=== PATIENT | male | born 1985 | race Caucasian/White ===

== ENCOUNTER 2019-05-11 21:30 | Observation (INO) | payer BC ==
[~2019-05-11] VITALS: Ht 172.7 cm; Wt 68.1 kg
[~2019-05-11 21:30] MED LIST: CEPH500 PO; CYCL10 PO; HYDACE5 PO; IBUP800 PO; NAPR500 PO; RXCYCL10 PO; RXHYDACE PO; SULTRIDS PO
[2019-05-11 21:58] LABS: BASOPHILS ABSOLUTE AUTO 0.13 K/mm3 (0.00-0.23); BASOPHILS PERCENT AUTO 1 % (0-2); EOSINOPHILS ABSOLUTE AUTO 0.13 K/mm3 (0.00-0.68); EOSINOPHILS PERCENT AUTO 1 % (0-6); Hemoglobin 19.2 g/dL (13.5-17.5); IMMATURE GRAN ABSOLUTE AUTO 0.03 K/mm3 (0.00-0.10); IMMATURE GRAN PERCENT AUTO 0 % (0-1); LYMPHOCYTES ABSOLUTE AUTO 2.36 K/mm3 (0.84-5.20); LYMPHOCYTES PERCENT AUTO 26 % (21-46); MONOCYTES ABSOLUTE AUTO 0.69 K/mm3 (0.16-1.47); MONOCYTES PERCENT AUTO 8 % (4-13); Mean Corpuscular HGB 31.4 pg (26.0-34.0); Mean Corpuscular Volume 92 fL (80-100); Mean Platelet Volume 10.9 fL (9.1-12.4); NEUTROPHILS PERCENT AUTO 64 % (41-73); Platelet Count 279 K/mm3 (150-400); RDW Coefficient Variation 12.4 % (11.7-14.2); RDW Standard Deviation 42.5 fL (35.1-46.3); Red Blood Cell Count 6.11 M/mm3 (4.30-5.90); White Blood Cell Count 9.14 K/mm3 (4.00-11.30)
[2019-05-11 22:00] LABS: Hematocrit 56.4 % (37.0-53.0)
[2019-05-11 22:35] LABS: Alanine Aminotransfer (ALT/SGP 1197 U/L (12-78); Albumin, Blood 4.3 g/dL (3.4-5.0); Albumin/Globulin Ratio 1.2 (0.8-1.8); Alk Phos 106 U/L (50-136); Anion Gap 15 mmol/L (6-16); Aspartate Aminotrans (AST/SGOT 1323 U/L (12-37); Blood Urea Nitrogen 20 mg/dL (8-24); Bun/Creatinine Ratio 22.9 (12.0-20.0); CO2, Blood 17 mmol/L (21-32); Calcium, Blood 8.6 mg/dL (8.5-10.1); Chloride, Blood 107 mmol/L (98-108); Creatinine, Blood 0.87 mg/dL (0.60-1.20); Globulin, Blood 3.7 g/dL (2.2-4.0); Glomerular Filtration Rate >60 (60-); Glucose, Blood 89 mg/dL (70-99); Potassium, Blood 4.1 mmol/L (3.5-5.5); Sodium, Blood 139 mmol/L (136-145)
[2019-05-11] MEDS ORDERED: BENADRYL25 MG PO (23:34)
[2019-05-12 01:15] LABS: Source, Urine Clean Catch
[2019-05-12 01:26] LABS: Bilirubin, Urine Neg (Neg); Blood, Urine Neg (Neg); Glucose Qualitative, Urine Neg (Neg); Ketones, Urine 2+ (Neg); Leukocyte Esterase, Urine Neg (Neg); Nitrite, Urine Neg (Neg); Protein, Urine Neg (Neg); Urobilinogen, Urine NORM (Normal)
[2019-05-12 01:34] LABS: Appearance, Urine Clear (Clear); Color, Urine Yellow (P-Yellow)
[2019-05-12 05:36] LABS: Hematocrit 45.7 % (37.0-53.0); Hemoglobin 15.6 g/dL (13.5-17.5); Mean Corpuscular HGB 31.7 pg (26.0-34.0); Mean Corpuscular HGB Conc 34.1 g/dL (31.5-36.5); Mean Corpuscular Volume 93 fL (80-100); Mean Platelet Volume 10.8 fL (9.1-12.4); Platelet Count 224 K/mm3 (150-400); RDW Coefficient Variation 12.3 % (11.7-14.2); RDW Standard Deviation 42.5 fL (35.1-46.3); Red Blood Cell Count 4.92 M/mm3 (4.30-5.90); White Blood Cell Count 7.47 K/mm3 (4.00-11.30)
[2019-05-12 06:01] LABS: Alanine Aminotransfer (ALT/SGP 806 U/L (12-78); Albumin, Blood 3.4 g/dL (3.4-5.0); Albumin/Globulin Ratio 1.2 (0.8-1.8); Alk Phos 83 U/L (50-136); Anion Gap 8 mmol/L (6-16); Aspartate Aminotrans (AST/SGOT 643 U/L (12-37); Bilirubin, Total 1.8 mg/dL (0.1-1.0); Blood Urea Nitrogen 17 mg/dL (8-24); Bun/Creatinine Ratio 18.4 (12.0-20.0); CO2, Blood 23 mmol/L (21-32); Calcium, Blood 7.7 mg/dL (8.5-10.1); Chloride, Blood 108 mmol/L (98-108); Creatinine, Blood 0.92 mg/dL (0.60-1.20); Globulin, Blood 2.8 g/dL (2.2-4.0); Glomerular Filtration Rate >60 (60-); Glucose, Blood 80 mg/dL (70-99); Magnesium, Blood 2.1 mg/dL (1.6-2.4); Potassium, Blood 3.9 mmol/L (3.5-5.5); Sodium, Blood 139 mmol/L (136-145); Total Protein, Blood 6.2 g/dL (6.4-8.2)
--- NOTE | 2019-05-12 06:23 | NUR ---
SHIFT SUMMARY NEW ED ADMIT THIS AM. PT ALERT AND ORIENTED. TRANSFERED EASILY FROM ED GURNEY TO BED WITHOUT ANY ISSUES. NO COMPLAINTS OF ABD PAIN OR DISCOMFORT. NO COMPLAINTS OF NAUSEA. PLEASANT AND COOPERATIVE. RASH TO ABD PT REPORTED WAS NOT NEW AND THAT HE GETS FROM THE HEAT. VITAL SIGNS STABLE. WILL CONTINUE TO MONITOR.
[2019-05-12 17:25] LABS: Campylobacter Sp Not Detected (NOT DETECT)
[2019-05-12 17:26] LABS: Adenovirus F 40/41 Not Detected (NOT DETECT); Astrovirus Not Detected (NOT DETECT); Cryptosporidium Not Detected (NOT DETECT); Cyclospora Cayetanensis Not Detected (NOT DETECT); E. Coli O157 Not Detected (NOT DETECT); Entamoeba Histolytica Not Detected (NOT DETECT); Enteroaggregative E. coli-EAEC Not Detected (NOT DETECT); Enteropathogenic E. coli-EPEC Detected (NOT DETECT); Enterotoxigenic E. coli-ETEC Not Detected (NOT DETECT); Giardia Lamblia Not Detected (NOT DETECT); Norovirus GI/GII Not Detected (NOT DETECT); Plesiomonas Shigelloides Not Detected (NOT DETECT); Rotavirus A Not Detected (NOT DETECT); Salmonella Sp Not Detected (NOT DETECT); Sapovirus Not Detected (NOT DETECT); Shiga Toxin-prod E. coli-STEC Not Detected (NOT DETECT); Shigella/Enteroin E. coli-EIEC Not Detected (NOT DETECT); Vibrio Cholerae Not Detected (NOT DETECT); Vibrio Sp Not Detected (NOT DETECT); Yersinia Enterocolitica Not Detected (NOT DETECT)
--- NOTE | 2019-05-12 19:20 | NUR ---
SHIFT SUMMARY: NO ACUTE CHANGES TO REPORT THIS SHIFT. PT A&O; CALM AND COOPERATIVE WITH CARE; INDEPENDENT IN ROOM. NO C/O PAIN OR NAUSEA THIS SHIFT. FLUID REHYDRATION CONTINUING. ABD US SCHEDULED FOR 05/13; NPO AFTER MIDNIGHT. REPORT GIVEN TO ONCOMING RN.
--- NOTE | 2019-05-13 01:52 | NUR ---
IV IN RT AC DOCUMENTED LT, CORRECTED SITE.
[2019-05-13 02:08] LABS: HBSAG SCREEN Negative (Negative); HEP A AB, IGM Negative (Negative); HEP B CORE AB, IGM Negative (Negative); HEP C VIRUS AB <0.1 (0.0-0.9)
--- NOTE | 2019-05-13 04:47 | NUR ---
34 year old Male who was admitted with N V D tested positive on stool GI panel for EColi. He recieved IV fluids and now is saline locked. He reports on 3 bowel movements since admit the last 2 were soft after recieving gen diet. Denies nausea all shift ir acute pain. now NPO for abd ultrasounfd and liver function panel. lungs sounds coarse ronchi throughout. PT has asthma and smokes 1 PPD tobacco. Encouraged smoking cessation. Travelled to [place] 6 months ago vauge co gi problems since.
[2019-05-13 05:36] LABS: Albumin, Blood 3.4 g/dL (3.4-5.0); Albumin/Globulin Ratio 1.1 (0.8-1.8); Bilirubin, Direct 0.5 mg/dL (0.0-0.3); Bilirubin, Indirect 1.6 mg/dL (0.1-0.7); Bilirubin, Total 2.1 mg/dL (0.1-1.0); Total Protein, Blood 6.4 g/dL (6.4-8.2)
[2019-05-13 05:38] LABS: Alanine Aminotransfer (ALT/SGP 487 U/L (12-78); Albumin, Blood 3.4 g/dL (3.4-5.0); Albumin/Globulin Ratio 1.2 (0.8-1.8); Alk Phos 80 U/L (50-136); Anion Gap 5 mmol/L (6-16); Aspartate Aminotrans (AST/SGOT 182 U/L (12-37); Bilirubin, Total 2.1 mg/dL (0.1-1.0); Blood Urea Nitrogen 10 mg/dL (8-24); Bun/Creatinine Ratio 12.8 (12.0-20.0); CO2, Blood 26 mmol/L (21-32); Calcium, Blood 8.1 mg/dL (8.5-10.1); Chloride, Blood 108 mmol/L (98-108); Creatinine, Blood 0.78 mg/dL (0.60-1.20); Globulin, Blood 2.9 g/dL (2.2-4.0); Glomerular Filtration Rate >60 (60-); Glucose, Blood 87 mg/dL (70-99); Potassium, Blood 4.1 mmol/L (3.5-5.5); Sodium, Blood 139 mmol/L (136-145); Total Protein, Blood 6.3 g/dL (6.4-8.2)
--- NOTE | 2019-05-13 10:04 | NUR ---
PT. LYING QUIETLY, EYES CLOSED. WENT OUT TO SMOKE AFTER THE ABD. US WAS CANCELLED AND ZOFRAN GIVEN FOR NAUSEA AT 0730.
--- NOTE | 2019-05-13 18:30 | NUR ---
PT.'S LABS HAVE IMPROVED SOMEWHAT TODAY, PT. HAD NAUSEA THIS AM BUT NOT THIS AFTERNOON. PT. WAITNG FOR THE SEND OUT LABS ON HEPATITIS BEFORE HE CAN BE DISCHARGED HOME. ORDERS HAVE BEEN WRITTEN IN CASE THEY COME IN THIS EVENING. DR. KRISTEL PALENCIA FOR SLEEP FOR PT. IF HE DOSN'T GET DISCHARGED THIS EVENING. PT. DOES NOT HAVE AN IV SITE WHICH IS NOT NEEDED AT THIS TIME. PT. HAS BEEN OUT TO SMOKE SEVERAL TIMES TODAY EVEN THOUGH HE WAS ADVISED AGAINST IT. NO FURTHER DIARRHEA NOTED.
--- NOTE | 2019-05-13 22:38 | NUR ---
DR Robles updated PT positive for MRSA in nares and no new orders. PT placed in contact isolation . discussed positive MRSA culture in nares to PT. has order for no IV needed and awaiting hepatitis panel prior to discharge. Zacheryien given at HS for insommnia. Tolerating gen diet.
--- NOTE | 2019-05-14 06:35 | NUR ---
PT compaining of headache and has nothing rx to treat pain , had denied pain previously and caffine offered as he usually consumes large amts of caffine. no relief, paged [facility] hospitalist to ask for rx to treat severe headache. Await return call. Positive for MRSA in nares continues in contact isolation. Positive for ECOLI in stool . no current diarrhea or nausea.
--- NOTE | 2019-05-14 06:41 | NUR ---
DR calls back with prn use of oxycodone 5 mg Q 4 hr PRN headache. Hepatitis panel labs pending. Will administer prn rx for headache.
[2019-05-14 09:03] LABS: Albumin/Globulin Ratio 1.2 (0.8-1.8); Bilirubin, Direct 0.6 mg/dL (0.0-0.3); Bilirubin, Indirect 1.2 mg/dL (0.1-0.7); Bilirubin, Total 1.8 mg/dL (0.1-1.0); Globulin, Blood 3.3 g/dL (2.2-4.0); Total Protein, Blood 7.3 g/dL (6.4-8.2)
--- NOTE | 2019-05-14 13:10 | NUR ---
PT. GIVEN DISCHARGE ORDERS WITH INSTRUCTION TO CALL BACK FOR HIS HEPATITIS LAB RESULTS. DISCHARGED HOME WITH HIS MOTHER, REFUSED WC RIDE OUT.
== END 2019-05-14 13:11 | disposition home or self-care (01) ==
LOC: ER 21:30 → MEDS 21:31 → ER 05-12 03:58 → MEDS 05-12 04:30
PROVIDERS: Emergency Medicine; Internal Medicine; ADMIT Internal Medicine
DX: K52.9 Noninfective gastroenteritis and colitis, unspecified (principal); B96.29 Other Escherichia coli [E. coli] as the cause of diseases classified elsewhere; E86.0 Dehydration; B17.9 Acute viral hepatitis, unspecified; F17.210 Nicotine dependence, cigarettes, uncomplicated; R74.0 Nonspecific elevation of levels of transaminase and lactic acid dehydrogenase [LDH]; R03.0 Elevated blood-pressure reading, without diagnosis of hypertension; Z87.09 Personal history of other diseases of the respiratory system; Z88.0 Allergy status to penicillin
CPT/HCPCS: 36415; 76705; 80053; 80074; 80076; 81003; 83690; 83735; 85025; 85027; 87081; 87507; 96361; 96372; 96374; 96376; 99285-25; G0378; J1650; J2405; J7030

== ENCOUNTER 2025-06-06 19:02 | Emergency (ER) | payer OTHER ==
[~2025-06-06] VITALS: Ht 172.7 cm; Wt 77.1 kg
[~2025-06-06 19:02] MED LIST changes: +BENADRYL25 MG PO
[2025-06-06 19:09] VITALS: BP 158/99
== END 2025-06-06 20:21 | disposition home or self-care (01) ==
LOC: ER 19:02
DX: S39.92XA Unspecified injury of lower back, initial encounter (principal); Z88.0 Allergy status to penicillin; F17.210 Nicotine dependence, cigarettes, uncomplicated; V49.59XA Passenger injured in collision with other motor vehicles in traffic accident, initial encounter
CPT/HCPCS: 72100; 99283-25